=== PATIENT | male | born 1960 | race Hispanic/Latino ===

== ENCOUNTER 2017-12-15 21:39 | Emergency (ER) | payer BC, OTHER ==
[2017-12-15] MEDS ORDERED: ORPHENADRINE CITRATE 30 MG/ML ML ONE (21:59)
[2017-12-15] MEDS ORDERED: KETOROLAC TROMETHAMINE 60 MG/2 ML VIAL ONE (21:59)
== END 2017-12-15 22:36 | disposition home or self-care (01) ==
LOC: EDH 21:39
DX: M62.830 Muscle spasm of back (principal); Z98.890 Other specified postprocedural states
CPT/HCPCS: 96372 ×2; 99284; J1885; J2360

== ENCOUNTER 2020-12-11 17:36 | Emergency (ER) | payer BC ==
[2020-12-11] MEDS ORDERED: NEOMY SULF/BACITRA/POLYMYXIN B 1 EACH PACKET TP ONE (18:07)
== END 2020-12-11 18:24 | disposition home or self-care (01) ==
LOC: EDH 17:36
DX: S90.02XA Contusion of left ankle, initial encounter (principal); X58.XXXA Exposure to other specified factors, initial encounter; Y93.89 Activity, other specified; Y92.89 Other specified places as the place of occurrence of the external cause; Y99.8 Other external cause status
CPT/HCPCS: 73610